=== PATIENT | female | born 1960 | race Caucasian/White ===

== ENCOUNTER → 2016-10-15 | Outpatient (CLI) | payer BC | LOC: FIMAGING 08:16 | PROVIDERS: ATTEND Family Medicine | DX: Z12.31 Encounter for screening mammogram for malignant neoplasm of breast (principal) | CPT/HCPCS: G0202 ==

== ENCOUNTER 2017-12-23 09:38 | Day surgery (SDC) | payer BC ==
--- NOTE | 2017-12-22 20:39 | GHP ---
CHIEF COMPLAINT: Right ankle. HISTORY OF PRESENT ILLNESS: The patient is a 56-year-old who sustained a fall, twisting her ankle. She had immediate pain with difficulty ambulating. She denies any previous problems or injuries relative to her ankle. PAST MEDICAL HISTORY: Positive for diabetes, hypertension. MEDICATIONS: She takes carvedilol, lisinopril, metformin, sertraline and triamterene/hydrochlorothiazide. SOCIAL HISTORY: Negative for cigarette smoking. PAST SURGICAL HISTORY: Positive for cardiac catheterization. ALLERGIES: No known drug allergies. REVIEW OF SYSTEMS: Noncontributory. PHYSICAL EXAMINATION: HEAD: Head is normocephalic. Pupils equal, round and reactive to light. Extraocular eye movements. No JVD or lymphadenopathy. CHEST: Clear to auscultation. Regular rate and rhythm. No murmurs, rubs. ABDOMEN: Nontender, nondistended. No organomegaly. GENITAL/RECTAL/BREAST: Exams deferred. EXTREMITIES: Swelling and tenderness along the medial and lateral aspects of her ankle. Her distal neurovascular exam is intact. ASSESSMENT: Right trimalleolar ankle fracture. PLAN: The patient is scheduled to undergo open reduction, internal fixation right trimalleolar ankle fracture. /[id number]/MODL MTDD
[2017-12-23] MEDS ORDERED: BUPIVACAINE 0.5% 30 ML SDV ONE (09:47)
[2017-12-23] MEDS ORDERED: LR 1,000 ML IV ONE (09:48)
--- NOTE | 2017-12-23 10:28 | PDANEPAE ---
ANE History of Present Illness here for orif ankle ANE Past Medical History - Cardiovascular History Hx Hypertension: Yes Hx Arrhythmias: No Hx Chest Pain: No Hx Coronary Artery / Peripheral Vascular Disease: No Hx CHF / Valvular Disease: No Hx Palpitations: No Cardiovascular History Comment: hyperlipidemia. hypertrophic cardiomyopathy. sees disease intervention specialist at [facility], will request records - Pulmonary History Hx COPD: No Hx Asthma/Reactive Airway Disease: No Hx Recent Upper Respiratory Infection: No Hx Oxygen in Use at Home: Yes O2 in Use at Home (L/minute): 2l at noc Hx Sleep Apnea: Yes Sleep Apnea Screening Result - Last Documented: Positive Pulmonary History Comment: hx of zeus- pt states she only has when she sleeps on her back- uses o2 no cpap - Neurologic History Hx Cerebrovascular Accident: No Hx Seizures: No Hx Dementia: No - Endocrine History Hx Diabetes: Yes Endocrine History Comment: type 2 - Renal History Hx Renal Disorders: No - Liver History Hx Hepatic Disorders: No - Neurological & Psychiatric Hx Hx Neurological and Psychiatric Disorders: Yes Neurological / Psychiatric History Comment: anxiety. depression - Cancer History Hx Cancer: No - Congenital Disorder History Hx Congenital Disorders: No - GI History Hx Gastrointestinal Disorders: No - Other Health History Other Health History: dry skin from medications - Chronic Pain History Chronic Pain: No - Surgical History Prior Surgeries: colonoscopy. hysterectomy. gastric bypass ANE Review of Systems Review of systems is: negative Review of Systems: - Exercise capacity Exercise capacity: >=4 METS METS (RN): 4 METS ANE Patient History - Allergies Allergies/Adverse Reactions: No Known Allergies Allergy (Verified 12/22/17 10:11) - Home Medications Home Medications: Carvedilol 12/22/17 [Last Taken 12/23/17 07:30] Herbals/Supplements -Info Only 12/22/17 [Last Taken 12/21/17] Lisinopril 12/22/17 [Last Taken 12/22/17 20:00] Metformin HCl 12/22/17 [Last Taken 12/21/17] Methylphenidate HCl 12/22/17 [Last Taken 12/17/17] Sertraline HCl 12/22/17 [Last Taken 12/22/17 08:00] Triamterene 12/22/17 [Last Taken 12/22/17] - NPO status NPO Status: no food or drink >8 hours NPO Since - Liquids (Date): 12/23/17 NPO Since - Liquids (Time): 07:30 NPO Since - Solids (Date): 12/22/17 NPO Since - Solids (Time): 19:30 - Anes Hx Anes Hx: no prior problems - Smoking Hx Smoking Status: Never smoked - Family Anes Hx Family Hx Anesthesia Complications: none ANE Labs/Vital Signs - Vital Signs Vital Signs: reviewed preoperatively; see RN documention for details Blood Pressure: 112/70 Heart Rate: 62 Respiratory Rate: 16 O2 Sat (%): 91 Height: 165.1 cm Weight: 82.554 kg ANE Physical Exam - Airway Neck exam: FROM Mallampati Score: Class 1 - Pulmonary Pulmonary: no respiratory distress - Cardiovascular Cardiovascular: regular rate and rhythym - ASA Status ASA Status: III ANE Anesthesia Plan Anesthesia Plan: GA w LMA Regional Anesthesia: adductor canal FNB, popliteal SNB
[2017-12-23] MEDS ORDERED: fentaNYL 100 MCG/2 ML INJ ONE ×2 (10:34→12:35)
[2017-12-23] MEDS ORDERED: MIDAZOLAM 2 MG/2 ML VIAL ONE (10:34)
[2017-12-23] MEDS ORDERED: PHENYLEPHRINE HCL 100 MCG/ML SYR ONE (11:08)
[2017-12-23] MEDS ORDERED: PROPOFOL/EMULSION 500 MG/50 ML BOTTLE IV ONE (11:09)
[2017-12-23] MEDS ORDERED: ceFAZolin 2 GM/DEXTROSE 100 ML IV ONE (11:26)
--- NOTE | 2017-12-23 11:27 | POSTOPPROG ---
Post Op Note Date of Operation: 12/23/17 Surgeon: Elmer Birch Anesthesia: GET(General Endotracheal) Pre-op Diagnosis: R trimalleolar ankle fx Post-op Diagnosis: same Procedure: ORIF R trimalleolar ankle fx Inf/Abcess present in the surg proc area at time of surgery?: No EBL: Minimal
[2017-12-23] MEDS ORDERED: NALOXONE HCL 0.4 MG/ML INJ IVP PRN (12:09)
[2017-12-23] MEDS ORDERED: HYDROCODONE/APAP 5/325 TAB PO PRN (12:55)
[2017-12-23] MEDS ORDERED: fentaNYL 100 MCG/2 ML INJ IVP PRN (12:55)
[2017-12-23] MEDS ORDERED: oxyCODONE IR 5 MG TAB PO PRN (12:55)
[2017-12-23] MEDS ORDERED: DEXAMETHASONE 4 MG/ML VIAL IVP PRN (12:55)
[2017-12-23] MEDS ORDERED: ALBUTEROL 3 ML DEYVIAL IH PRN (12:55)
[2017-12-23] MEDS ORDERED: ONDANSETRON 4 MG/2 ML VIAL IVP PRN (12:55)
[2017-12-23] MEDS ORDERED: HYDROmorphONE/DILAUDID 1 MG/ML INJ IVP PRN (12:55)
[2017-12-23 15:47] VITALS: BP 83/65
--- NOTE | 2017-12-23 17:39 | GOP ---
DATE OF OPERATION: 12/23/2017 SURGEON: Elmer Birch MD ANESTHESIA: General plus popliteal and adductor canal saphenous nerve blocks performed by the anesth esiologist at my request for postoperative pain management. PREOPERATIVE DIAGNOSIS: Right trimalleolar ankle fracture. POSTOPERATIVE DIAGNOSIS: Right trimalleolar ankle fracture. PROCEDURE PERFORMED: Open reduction, internal fixation, right trimalleolar ankle fracture with fixat ion of posterior malleolar fragment. FINDINGS: ESTIMATED BLOOD LOSS: Minimal. INDICATIONS: The patient is a 56-year-old who sustained a fall resulting in trimalleolar ankle fract ure. Based on the displaced and unstable nature of the injury, it was recommended that operative jose luis atment consisting of open reduction, internal fixation be pursued. The patient acknowledged she unde rstood the potential risks of the operation, including but not limited to bleeding, infection, neurov ascular damage, malunion, nonunion, hardware removal, pain or functional limitations despite operativ e treatment, and the anesthetic risks. She understood the potential risks of the planned procedure and the postop plan well, and had all que stions answered prior to surgery. DESCRIPTION OF PROCEDURE: Technique: The patient was brought to the operating room after IV antibio tics were administered. Popliteal and adductor canal saphenous nerve blocks performed by the anesthe siologist at my request for postoperative pain management. General anesthetic was administered. Geoff rniquet was placed on the right calf. The patient was transferred to the left lateral decubitus posi tion on the operating room table with beanbag support and axillary roll, and padding of all bony prom inences. The right lower leg was prepped and draped in standard sterile fashion. After marking the incision and Victor M wrap exsanguination, tourniquet was inflated to 250. A longitudinal incision was mad e along the posterior aspect of the distal tibia. Subcutaneous tissue was sharply incised. Sharp dissection was carried through the fascia bronwyn. Dissection was carried anterior to the peronea l tendons, exposing the posterior aspect of the fibula. Provisional reduction of the fibula was perf ormed reduction clamp. A 6-hole 1/3 tubular plate was malleted flat at its distal aspect. It was placed along the posterior border of the fibula. Just proximal to the plane of the fracture through the plate, a 3.5 mm bicortical screw was placed in a oxvdzcxik-jj-snxeadoj direction. As th e screw was tightened, the fracture reduction was fine tuned into an anatomic position with a dental pick. The fracture held in the anatomically reduced position. A 2.7 mm cortical screw was placed in lag fashion through the plate across the fracture. The 3.5 mm bicortical screw was then placed in t he most proximal hole of the plate. Fluoroscopic views confirmed anatomic reduction and favorable knowles rdware placement. Attention was then directed toward the posterior malleolus. Through the same incision, dissection wa s carried in the interval between the peroneal and flexor pollicis longus tendon, exposing the polymerization kettle operator ior aspect of the distal tibia. Posterior ligaments were left intact. Fracture was identified, mobi lized. We used the elevator to help push the fracture in these positions. Additional pinning was pe rformed with a 0.25 K-wire. A 2.4 mm T-plate was cut and contoured to fit the posterior tibia. Just proximal to the plane of the fracture, a 2.7 mm cortical screw was placed in a tgktcbyie-ln-msnicvxk direction to the plate screw. The K-wire was then removed. Two 2.7 mm cortical screws w ere placed in lag fashion, through the plate, across the fracture site. Supplemental unicortical 2.7 mm screw was then placed proximally. Fluoroscopic views confirmed favorable reduction and proper placement. Attention was directed toward closure. The fascial layer overlying the peroneal tendons was closed with 2-0 Vicryl suture in the fascia and subcutaneous tissues were reapproximated with 3-0 Vicryl suture in interrupted fashion. S kin was closed with 4-0 nylon interrupted sutures. Keeping the field sterile, beanbag was deflated. Patient was carefully transferred to a supine position. Attention was directed toward the . Oblique incision was made over the medial malleolus. Care was taken to avoid damage to the saphenous vein. Dissection was carried down on the fracture si te. Interposed periosteum was debrided. Utilizing a 2-point reduction clamp, the fracture was anato mically reduced, provisionally held. Two 2.7 cortical screws were placed in lag fashion, in a distal /proximal direction across the fracture. Fluoroscopic views confirmed favorable reduction and hardwa re placement. Attention was then turned to closure. Subcutaneous tissue was closed with 3-0 Vicryl suture in inter rupted fashion. The skin was closed with 4-0 nylon interrupted sutures. The wounds were dressed wit h sterile Adaptic, 4 x 4, and Webril. Leg was placed in a below-knee splint. The patient tolerated the procedure well and was taken to the recovery room, extubated, in stable condition postoperatively . All sponge, needle, and instrument counts were reported as being correct. SURGEON: Elmer Birch MD DRAINS: None. COMPLICATIONS: None. POSTOPERATIVE PLAN: The patient will be discharged home, nonweightbearing on her operative extremity . /[id number]/MODL
== END 2017-12-23 15:25 | disposition home or self-care (01) ==
LOC: FSGY 09:38
PROVIDERS: ATTEND Orthopaedic Surgery Foot and Ankle Surgery
PROC: 0QSJ04Z Reposition Right Fibula with Internal Fixation Device, Open Approach (ICD-10-PCS; principal; 2017-12-23 11:15)
PROC: 0QSG04Z Reposition Right Tibia with Internal Fixation Device, Open Approach (ICD-10-PCS; principal; 2017-12-23 11:15)
DX: S82.851A Displaced trimalleolar fracture of right lower leg, initial encounter for closed fracture (principal); W19.XXXA Unspecified fall, initial encounter; X50.1XXA Overexertion from prolonged static or awkward postures, initial encounter; E11.9 Type 2 diabetes mellitus without complications; I10 Essential (primary) hypertension
CPT/HCPCS: C1713; J2250; J2370; J2704; J3010

== ENCOUNTER 2018-09-05 11:59 | Day surgery (SDC) | payer BC ==
--- NOTE | 2018-09-01 10:12 | GHP ---
[f rep st] PREOP HISTORY AND PHYSICAL DATE OF ADMISSION: 09/05/2018 DATE OF SURGERY: 09/05/2018 CHIEF COMPLAINT: Right ankle. HISTORY OF PRESENT ILLNESS: The patient is a 57-year-old who previously has undergone open reduction and internal fixation of a trimalleolar ankle fracture. The patient had clinical and radiographic e vidence of a healed fracture, but was having pain and some stiffness in her ankle. MEDICATIONS: Medicines include carvedilol, lisinopril, lorazepam, metformin, methylphenidate, oxycod one, sertraline, triamterene-hydrochloride, and Victoza. ALLERGIES: She lists no drug allergies. PAST MEDICAL HISTORY: Positive for hypertension, diabetes, anxiety and depression. SOCIAL HISTORY: Negative for tobacco use. PAST SURGICAL HISTORY: Positive for cardiac catheterization and the previous ankle surgery. PHYSICAL EXAMINATION: GENERAL: She is overall appearing in good health in no acute distress. HEENT : Head is normocephalic. Pupils equal, round, and reactive to light. Extraocular movements intact. NECK: Supple. No JVD or lymphadenopathy. CHEST: Clear to auscultation. HEART: Regular rate an d rhythm. No murmurs or gallops. ABDOMEN: Soft, nontender, nondistended. GENITAL/RECTAL/BREASTS: Exam is deferred. EXTREMITIES: Healed incisional scars in her right ankle. She has some tenderness over her hardware with some diminution in her ankle range of motion. ASSESSMENT: 1. Symptomatic retained hardware, right ankle. 2. Right ankle arthrofibrosis. PLAN: The patient is scheduled to undergo hardware removal, ankle arthroscopy and debridement. /[id number]/MODL
[~2018-09-05 11:59] MED LIST: ceFAZolin 2 GM/DEXTROSE 100 ML IV ONE
[2018-09-05] MEDS ORDERED: LR 1,000 ML IV ONE (12:12)
--- NOTE | 2018-09-05 12:17 | PDHPUP ---
History & Physical Update H&P update statement: This history and physical update is based on an assessment of the patient which was completed after admission or registration (within 24 hours), but prior to the surgery/procedure. H&P update: H&P reviewed & patient examined, no change in patient's condition since H&P completed
[2018-09-05] MEDS ORDERED: fentaNYL 100 MCG/2 ML INJ ONE ×3 (14:01→16:34)
[2018-09-05] MEDS ORDERED: PROPOFOL 200 MG/20 ML VIAL ONE ×2 (14:01→15:21)
[2018-09-05] MEDS ORDERED: ROPIVACAINE HCL 150 MG/30 ML INJ ONE (14:04)
[2018-09-05] MEDS ORDERED: MIDAZOLAM 2 MG/2 ML VIAL ONE (14:09)
[2018-09-05] MEDS ORDERED: LIDOCAINE 2% 5 ML SDV ONE (14:09)
[2018-09-05] MEDS ORDERED: BUPIVACAINE 0.5% 30 ML SDV ONE (14:22)
--- NOTE | 2018-09-05 14:49 | POSTOPPROG ---
Post Op Note Date of Operation: 09/05/18 Surgeon: Elmer Birch Anesthesia: LMA Pre-op Diagnosis: Retained hardware R ankle, R ankle impingement Post-op Diagnosis: same Procedure: HWR, ankle a-scope/debridement Inf/Abcess present in the surg proc area at time of surgery?: No EBL: Minimal
[2018-09-05] MEDS ORDERED: DEXAMETHASONE 4 MG/ML VIAL ONE (15:15)
[2018-09-05] MEDS ORDERED: PHENYLEPHRINE HCL 100 MCG/ML SYR ONE (15:16)
[2018-09-05] MEDS ORDERED: ONDANSETRON 4 MG/2 ML VIAL ONE (15:16)
[2018-09-05] MEDS ORDERED: NALOXONE HCL 0.4 MG/ML INJ IVP PRN (15:56)
[2018-09-05] MEDS ORDERED: ONDANSETRON 4 MG/2 ML VIAL IVP PRN (15:56)
[2018-09-05] MEDS ORDERED: METOCLOPRAMIDE 10 MG/2 ML VIAL IVP PRN (15:56)
[2018-09-05] MEDS ORDERED: PROMETHAZINE HCL 25 MG/ML INJ IVP PRN (15:56)
[2018-09-05] MEDS ORDERED: ALBUTEROL 3 ML DEYVIAL IH PRN (15:56)
[2018-09-05] MEDS ORDERED: LR 500 ML IV PRN (15:56)
[2018-09-05] MEDS ORDERED: HYDROCODONE/APAP 5/325 TAB PO PRN (15:56)
[2018-09-05] MEDS ORDERED: oxyCODONE IR 5 MG TAB PO PRN (15:56)
[2018-09-05] MEDS ORDERED: HYDROmorphONE/DILAUDID 1 MG/ML INJ IVP PRN (15:56)
[2018-09-05] MEDS ORDERED: ACETAMINOPHEN 500 MG TAB PO PRN (15:56)
--- NOTE | 2018-09-05 15:56 | PDANEPAE ---
ANE History of Present Illness right ankle arthroscopy ANE Past Medical History - Cardiovascular History Hx Hypertension: Yes Hx Arrhythmias: No Hx Chest Pain: No Hx Coronary Artery / Peripheral Vascular Disease: No Hx CHF / Valvular Disease: No Hx Palpitations: No Cardiovascular History Comment: hyperlipidemia. hypertrophic cardiomyopathy. 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 [facility], will request records - Pulmonary History Hx COPD: No Hx Asthma/Reactive Airway Disease: No Hx Recent Upper Respiratory Infection: No Hx Oxygen in Use at Home: Yes O2 in Use at Home (L/minute): O2 2L NOC Hx Sleep Apnea: Yes Sleep Apnea Screening Result - Last Documented: Positive Pulmonary History Comment: hx of zeus- pt states she only has when she sleeps on her back - Neurologic History Hx Cerebrovascular Accident: No Hx Seizures: No Hx Dementia: No - Endocrine History Hx Diabetes: Yes Endocrine History Comment: type 2 - Renal History Hx Renal Disorders: No - Liver History Hx Hepatic Disorders: No - Neurological & Psychiatric Hx Hx Neurological and Psychiatric Disorders: Yes Neurological / Psychiatric History Comment: SERTRALINE. anxiety. depression - Cancer History Hx Cancer: No - Congenital Disorder History Hx Congenital Disorders: No - GI History Hx Gastrointestinal Disorders: No - Other Health History Other Health History: dry skin from medications - Chronic Pain History Chronic Pain: No - Surgical History Prior Surgeries: 12/2017 FX ANKLE REPAIR. colonoscopy. hysterectomy. gastric bypass ANE Review of Systems Review of Systems: - Exercise capacity METS (RN): 5 METS ANE Patient History - Allergies Allergies/Adverse Reactions: No Known Allergies Allergy (Verified 12/22/17 10:11) - Home Medications Home medications: home medication list seen and reviewed Home Medications: Carvedilol 12/22/17 [Last Taken 09/05/18 09:00] Herbals/Supplements -Info Only 12/22/17 [Last Taken 09/03/18] Lisinopril 12/22/17 [Last Taken 09/05/18 09:00] Metformin HCl 12/22/17 [Last Taken 09/05/18 09:00] Methylphenidate HCl 12/22/17 [Last Taken 09/04/18] Sertraline HCl 12/22/17 [Last Taken 09/04/18] Triamterene 12/22/17 [Last Taken 09/04/18] - NPO status NPO Since - Liquids (Date): 09/05/18 NPO Since - Liquids (Time): 11:00 NPO Since - Solids (Date): 09/04/18 NPO Since - Solids (Time): 21:30 - Anes Hx Anes Hx: no prior problems - Smoking Hx Smoking Status: Never smoked - Family Anes Hx Family Hx Anesthesia Complications: none ANE Labs/Vital Signs - Vital Signs Blood Pressure: 100/70 Heart Rate: 73 Respiratory Rate: 16 O2 Sat (%): 94 Height: 165.1 cm Weight: 81.647 kg ANE Physical Exam - Airway Neck exam: FROM Mallampati Score: Class 2 Mouth exam: normal dental/mouth exam - Pulmonary Pulmonary: no respiratory distress - Cardiovascular Cardiovascular: regular rate and rhythym - ASA Status ASA Status: III ANE Anesthesia Plan Anesthesia Plan: GA w LMA Regional Anesthesia: single shot NB, adductor canal FNB, popliteal SNB Urgent/Emergent Case: Paty gay completed preop but documented later for safe timely pt care
--- NOTE | 2018-09-05 15:56 | POSTANESTH ---
Post Anesthetic Evaluation Cardiovascular Status: Normal, Stable Respiratory Status: Normal, Stable Level of Consciousness/Mental Status: Can Participate in Eval, Alert and Oriented Pain Control: Adequate, Prn Tx Ordered Nausea/Vomiting Control: Adequate, Prn Tx Ordered Complications Possibly Related to Anesthesia: None Noted
[2018-09-05] MEDS: fentaNYL 100 MCG/2 ML INJ IVP PRN ×3 (16:36→16:57)
[2018-09-05] MEDS ORDERED: HYDROCODONE/APAP 5/325 TAB ONE (17:34)
[2018-09-05 18:09] VITALS: BP 108/59
--- NOTE | 2018-09-07 08:01 | GOP ---
[f rep st] OPERATIVE REPORT DATE OF OPERATION: 09/05/2018 SURGEON: Elmer Birch MD ANESTHESIA: General, plus popliteal and saphenous nerve blocks performed by the anesthesiologist at my request for postoperative pain management. PREOPERATIVE DIAGNOSIS: 1. Right ankle impingement. 2. Symptomatic retained hardware, right fibula. 3. Symptomatic retained hardware, right tibia. POSTOPERATIVE DIAGNOSIS: 1. Right ankle impingement. 2. Symptomatic retained hardware, right fibula. 3. Symptomatic retained hardware, right tibia. PROCEDURE PERFORMED: 1. Right ankle arthroscopic evaluation and extensive debridement. 2. Hardware removal, right fibula. 3. Hardware removal, right tibia (separate incision). FINDINGS: ESTIMATED BLOOD LOSS: Minimal. INDICATIONS: The patient is a 57-year-old who had previously undergone open reduction, internal fixa tion of trimalleolar ankle fracture dislocation. The patient had clinical and radiographic evidence of healed fracture with anatomic alignment, was having pain felt to be due to retained hardware and s oft tissue impingement. Based on her persistence of symptoms refractory to nonoperative treatment, s he was interested in pursuing operative treatment. From an operative standpoint, hardware removal an d arthroscopic debridement was recommended. The patient acknowledged she understood the potential ri sks of the operation, including, but not limited to, bleeding, infection, neurovascular damage leadin g to loss of limb or limb function, inability to remove hardware, pain or functional limitations desp ite operative treatment, and anesthetic risks. She acknowledged she understood the potential risks, the planned procedure, and postoperative plan well, and had all questions answered prior to surgery. She gave her consent for the operative procedure. DESCRIPTION OF PROCEDURE: The patient was brought to the operating after IV antibiotics were adminis tered. She was placed in a supine position where general anesthetic was administered. Prior to bein g brought back to the operating room, popliteal and saphenous nerve blocks were performed by the anes thesiologist at my request for postoperative pain management. A tourniquet was placed on the operati ve calf, and the patient was transferred to a lateral decubitus position with beanbag support, axilla ry roll, and padding of all bony prominences. The lower leg was prepped and draped in standard steri le fashion. After Victor M wrap exsanguination, tourniquet was inflated to 250. The previous incision wa s utilized for exposure. Skin and subcutaneous tissue were sharply incised. Dissection was carried anterior to the peroneal tendon exposing the posterior aspect of the fibula. Plate and screws were f ree of their fiber osseous overgrowth and removed without difficulty. Prominent fibrous ridges were removed with a rongeur. Through the same incision, dissection was carried in the interval between th e flexor hallucis longus and peroneal tendons, exposing the posterior border of the distal tibia. Th e plate and screws were identified, freed of their fibrous overgrowth, and removed without difficulty . Attention was directed toward closure of this wound. The retinaculum overlying the peroneal tendons was closed with 2-0 Vicryl suture in interrupted fashion. Subcutaneous tissue closed with 3-0 Vicryl suture in interrupted fashion. Skin closed with 4-0 nylon interrupted sutures. The beanbag was def lated, and the patient carefully transferred into a supine position keeping sterility intact. The me dial tibial screws were then approach. A previous medial incision was utilized for exposure. Skin a nd subcutaneous tissue were sharply incised. Limited incisions were made through the deltoid ligamen t exposing the 2 medial screws. Screws were identified and removed without difficulty. The arthroscopic portion of the surgery was then performed. The table was elevated and foot dropped for gravity distraction. The anteromedial portal was confirmed with needle placement and fluid insuf flation. The location of the superficial peroneal nerve was identified. A small vertical incision w as made at the anteromedial portal just medial to the tibialis anterior. Dissection was carried thro ugh the capsule with a fine-tipped hemostat. The 2.7 mm arthroscopic sheath was inserted over a blun t trocar. An 18-gauge spinal needle was placed anterolaterally for outflow purposes, taking care to avoid damage to the superficial peroneal nerve. Examination of the joint revealed no visible articul ar damage. There was abundant scar tissue both laterally and medially. The 2.5 mm full radius shave r was introduced through the anterolateral portal. A small vertical incision was made at the placeme nt of the spinal needle. Dissection was carried through the subcutaneous tissue and joint capsule wi th a fine-tipped hemostat and blunt trocar. Utilizing the full-radius shaver and a small manual bask et cutters, the abundant scar tissue was removed. The ankle was visualized through range of motion a nd found to have no further evidence of impingement. The arthroscopic portals were closed with 4-0 n ylon interrupted suture. The medial incision was closed with 3-0 Vicryl suture in the subcutaneous t issue and 4-0 nylon skin sutures. The wounds were dressed with sterile Adaptic, 4 x 4, Kerlix, and A ce wrap. The patient was taken to the recovery room and extubated in stable condition postoperativel y. All sponge, needle, and instrument counts were reported as being correct. DRAINS: None. COMPLICATIONS: None. PLAN: The patient be discharged home, weightbearing as tolerated in her fracture boot. /[id number]/MODL
== END 2018-09-05 18:00 | disposition home or self-care (01) ==
LOC: FSGY 11:59
PROVIDERS: ATTEND Orthopaedic Surgery Foot and Ankle Surgery
PROC: 0QPJ04Z Removal of Internal Fixation Device from Right Fibula, Open Approach (ICD-10-PCS; principal; 2018-09-05 14:00)
PROC: 0SBF4ZZ Excision of Right Ankle Joint, Percutaneous Endoscopic Approach (ICD-10-PCS; principal; 2018-09-05 14:00)
PROC: 0QPG04Z Removal of Internal Fixation Device from Right Tibia, Open Approach (ICD-10-PCS; principal; 2018-09-05 14:00)
DX: T84.82XA Fibrosis due to internal orthopedic prosthetic devices, implants and grafts, initial encounter (principal); T84.84XA Pain due to internal orthopedic prosthetic devices, implants and grafts, initial encounter; I10 Essential (primary) hypertension; I42.2 Other hypertrophic cardiomyopathy; E78.5 Hyperlipidemia, unspecified; E11.9 Type 2 diabetes mellitus without complications; F41.9 Anxiety disorder, unspecified; F32.9 Major depressive disorder, single episode, unspecified
CPT/HCPCS: J0690; J1100; J2250; J2370; J2405; J2704; J2795; J3010